=== PATIENT | female | born 1930 | race Caucasian/White ===

== ENCOUNTER → 2016-10-21 | Day surgery (SDC) | payer OTHER ==
[~2016-10-21] VITALS: Ht 147.3 cm; Wt 44.0 kg
[2016-10-21] VITALS (8 sets, daily range): BP systolic 106–128; BP diastolic 49–59
[~2016-10-21] MED LIST: ACETAMINOPHEN-1 EAC1 ORAL; AMLODIPINE BESYL5 MG ORAL; ATENOLOL50 MG ORAL; Akten 3.5% 1ml Btl ONE; BSS 15ml BTL ONE; BSS 500ml btl ONE; Carbachol 0.01% Op Soln 1.5ml vial ONE; Dexamethasone 4mg/ml vial ONE; Diclofenac Sod 0.1% Op Soln ONE; EPINEPHrine 1mg/1ml Amp ONE; Gatifloxacin Opth Solution 0.5% ONE; LOSARTAN POTASS25 MG ORAL; LR 1000ml 1,000 ML IVLG SCH; LR 1000ml ONE; Lidocaine 1% MPF 10mg/ml 5ml ONE; Midazolam 2mg/2ml Inj ONE; NS Irrig 1000ml ONE; PROBIOTIC1 EAC2 PO; Phenylephrine 2.5% Op Soln ONE; Povidone-Iodine 5% opth solution ONE; SERTRALINE HCL25 MG ORAL; SIMVASTATIN20 MG ORAL; Sodium Hyaluronate 14 mg/ml 0.85ml ONE; Sterile Water Irrig 1000ml IRRIG ONE; Tobradex Opth Susp 2.5ml ONE; Tropicamide 1% Opth Soln ONE; WARFARIN SODIU2.5 MG ORAL; WARFARIN SODIUM5 MG ORAL
[2016-10-21] MEDS: Akten 3.5% 1ml Btl LEFT EYE SCH ×3 (06:05→06:22)
[2016-10-21] MEDS: Phenylephrine 2.5% Op Soln LEFT EYE SCH ×3 (06:05→06:22)
[2016-10-21] MEDS: Diclofenac Sod 0.1% Op Soln LEFT EYE SCH ×3 (06:05→06:22)
[2016-10-21] MEDS: Tropicamide 1% Opth Soln LEFT EYE SCH ×3 (06:05→06:22)
[2016-10-21] MEDS: Tobradex Opth Susp 2.5ml LEFT EYE SCH ×3 (06:06→06:22)
[2016-10-21] MEDS: Gatifloxacin Opth Solution 0.5% LEFT EYE SCH ×3 (06:06→06:22)
--- NOTE | 2016-10-21 07:05 | Pre-Procedure Note/Attestation ---
Pre-Procedure Note/Attestation Complete Prior to Procedure Planned Procedure: left Procedure Narrative: cataract extraction with implant left eye Indications for Procedure Pre-Operative Diagnosis: cataract left eye Attestation I attest that I discussed the nature of the procedure; its benefits; risks and complications; and alternatives (and the risks and benefits of such alternatives ), prior to the procedure, with the patient (or the patient's legal assisted sales representative). I attest that, if there was a reasonable possibility of needing a blood transfusion, the patient (or the patient's legal assisted sales representative) was given the [facility] standardized written summary, pursuant to the Godwin Natalie Blood Safety Act ([place] Health and Safety Code # 1645, as amended). I attest that I re-evaluated the patient just prior to the surgery and that there has been no change in the patient's H&P, except as documented below: ODALYS AMBROSIO Oct 21, 2016 07:05
--- NOTE | 2016-10-21 07:25 | Anethesia Preoperative Eval ---
Anesthesia Pre-op PMH/ROS General Date of Evaluation: Oct 21, 2016 Time of Evaluation: 07:00 Anesthesiologist: Titus ASA Score: ASA 2 Mallampati Score Class I : Soft palate, uvula, fauces, pillars visible Class II: Soft palate, uvula, fauces visible Class III: Soft palate, base of uvula visible Class IV: Only hard plate visible Mallampati Classification: Class II Surgeon: Jaquan Diagnosis: Cataract left eye Surgical Procedure: cataract extraction left eye with IOL placement Anesthesia History: none Family History: no anesthesia problems Allergies: Coded Allergies: No Known Allergies (Verified , N/A, 10/14/06) Medications: see eMAR Past Medical History Cardiovascular: Reports: HTN, arrhythmia - afib Pulmonary: Denies: COPD, RADHA, asthma, other Gastrointestinal/Genitourinary: Denies: CRI, ESRD, GERD, other Neurologic/Psychiatric: Denies: CVA, TIA, dementia, depression/anxiety, other Endocrine: Denies: DM, hypothyroidism, other, steroids HEENT: Reports: cataract (L) Hematology/Immune: Denies: DVT, anemia, bleeding disorder, other Musculoskeletal/Integumentary: Denies: DDD, DJD, OA, RA, edema, other PMH Narrative: Age, HTN, Hyperlipidemia, Afib PSxH Narrative: denies Anesthesia Pre-op Phys. Exam Physician Exam Last Vital Signs Date Time Temp Pulse Resp B/P Pulse Ox O2 Delivery O2 Flow Rate FiO2 10/21/16 06:01 97.7 56 20 111/59 97 Room Air Constitutional: NAD Neurologic: CN 2-12 intact Cardiovascular: RRR Respiratory: CTA Gastrointestinal: S/NT/ND Airway Exam Mallampati Score: Class II MO: full ROM: full Teeth: intact Dentures: no lower, no upper REGINA BENZ D.O. Oct 21, 2016 07:25
--- NOTE | 2016-10-21 07:39 | Immediate Post-Op Evaluation ---
Immediate Post-Op Evalulation Immediate Post-Op Evalulation Procedure: Cataract extraction left eye with IOL placement Date of Evaluation: Oct 21, 2016 Time of Evaluation: 07:45 IV Fluids: 400ml Blood Products: none Estimated Blood Loss: none Urinary Output: due to void Blood Pressure Systolic: 115 Blood Pressure Diastolic: 50 Pulse Rate: 58 Respiratory Rate: 16 O2 Sat by Pulse Oximetry: 99 Temperature (Fahrenheit): 97 Pain Score (1-10): 0 Nausea: No Vomiting: No Complications none Patient Status: awake, reacts Hydration Status: adequate Drug: n/a REGINA BENZ D.O. Oct 21, 2016 07:39
--- NOTE | 2016-10-21 07:45 | 48 Hour Post Anesthesia Eval ---
Post Anesthesia Evaluation Procedure: Cataract extraction left eye with IOL placement Date of Evaluation: Oct 21, 2016 Time of Evaluation: 07:50 Blood Pressure Systolic: 134 0: 59 Pulse Rate: 58 Respiratory Rate: 16 Temperature (Fahrenheit): 98.5 O2 Sat by Pulse Oximetry: 99 Airway: patent Nausea: No Vomiting: No Pain Intensity: 0 Hydration Status: adequate Cardiopulmonary Status: stable Follow-up Care/Observations: as per surgeon Post-Anesthesia Complications: none Follow-up care needed: N/A REGINA BENZ D.O. Oct 21, 2016 07:45
--- NOTE | 2016-10-21 07:46 | Brief Operative Note ---
Immediate Post Operative Note Operative Note Pre-op Diagnosis: cataract left eye Procedure: phacoemulsification of cataract with implant left eye Post-op Diagnosis: same as pre-op Surgeon: onofre carr Die Casting Machine Maintainer: none Anesthesiologist: mikel hoyt Anesthesia: MAC Specimen: none Complications: none Condition: stable Estimated Blood Loss: none Drains: none Implant(s) used?: Yes ONOFRE CARR Oct 21, 2016 07:46
--- NOTE | 2016-10-21 09:59 | Operative Note - Dictated ---
DATE OF OPERATION: 10/21/2016 PREOPERATIVE DIAGNOSIS: Cataract, left eye. POSTOPERATIVE DIAGNOSIS: Cataract, left eye. PROCEDURE: Phacoemulsification of cataract, left eye, with placement of posterior chamber intraocular lens. SURGEON: Jones Partida M.D. [employer]FT [employer]: None. ANESTHESIA: MAC/topical. ANESTHESIOLOGIST: Dr. Genaro Qureshi INDICATION: Poor vision, left eye. DESCRIPTION OF FINDINGS: Dense nuclear sclerotic cataract, left eye. DESCRIPTION OF PROCEDURE: The patient received a topical anesthetic block consisting of 3.5% Akten eye drops. The eye was then prepped and draped in usual manner. A lid speculum was placed. An operating Zeiss microscope was positioned. The temporal corneal groove was made with the shayla blade. A SuperSharp blade made a stab incision at the 6 o'clock position. A 0.1 mL of 1% nonpreserved intracameral lidocaine was injected. Healon was instilled into the anterior chamber and a 2.5/2.8 mm trapezoidal shayla blade was used to complete the temporal corneal wound. A cystotome was used to create an anterior capsular flap. Utrata forceps were used to complete the capsulorrhexis. BSS on a cannula was used to hydrodissect the nucleus. The lens nucleus phacoemulsified in a phaco-fracture technique. Remaining cortical material removed with the I/A and the posterior capsule was polished with the I/A on Cap vac. Healon was instilled in a capsular bag and the anterior chamber, and an Najera foldable one-piece posterior chamber intraocular lens, model ZCB00, power 20.5 diopter, serial #[id number], was placed in the injector. The lens were put in the capsular bag. The I/A tip was used to remove the Healon and position the lens. The wound edge was hydrated with BSS and a blunt-tipped cannula. The wound was checked and found to be watertight. The lid speculum was removed and a drop of TobraDex and Zymaxid was placed. A clear plastic shield was taped over the eye. The patient tolerated well and left the operating room in good condition. Jones Partida M.D. ([facility] [place] DR: MOMO JOB#: [id number] CC: Tami Jimenes M.D. ([facility] [place] Fax#: [phone] [facility]
== END | disposition home or self-care (01) ==
LOC: SUR 05:24
DX: H25.12 Age-related nuclear cataract, left eye (principal); I48.0 Paroxysmal atrial fibrillation; Z79.01 Long term (current) use of anticoagulants; F41.1 Generalized anxiety disorder; F32.9 Major depressive disorder, single episode, unspecified; E78.5 Hyperlipidemia, unspecified; I10 Essential (primary) hypertension; K58.0 Irritable bowel syndrome with diarrhea; M19.049 Primary osteoarthritis, unspecified hand; M81.0 Age-related osteoporosis without current pathological fracture; R73.02 Impaired glucose tolerance (oral); R20.9 Unspecified disturbances of skin sensation; M79.7 Fibromyalgia; B35.1 Tinea unguium; Z85.3 Personal history of malignant neoplasm of breast; Z90.12 Acquired absence of left breast and nipple; Z90.710 Acquired absence of both cervix and uterus; Z90.49 Acquired absence of other specified parts of digestive tract
CPT/HCPCS: 66984; J0171; J1100; J2250; J7120; V2632; 94003; 94150